=== PATIENT | female | born 1985 | race African-American/Black ===

== ENCOUNTER 2019-12-05 23:32 | Emergency (ER) | payer OTHER ==
[~2019-12-05] VITALS: Ht 180.3 cm; Wt 74.0 kg
[2019-12-06] MEDS ORDERED: SODIUM CHLORIDE 0.9% 1,000 ML IV ONE (01:40)
[2019-12-06] MEDS ORDERED: ONDANSETRON HCL 4MG/2ML INJ IV STA (01:40)
[2019-12-06 02:14] LABS: EOSINOPHILS % 0.3 % (0.0-5.0); HEMATOCRIT. 40.7 % (36.0-48.0); LYMPHOCYTES % 25.1 % (20.0-50.0); MEAN CORPUSCULAR HEMOGLOBIN 31.4 pg (28.0-32.0); MEAN CORPUSCULAR VOLUME 91.4 fL (81.0-99.0); MEAN PLATELET VOLUME 8.7 fl (7.4-10.4); MONOCYTES % 5.9 % (2.0-8.0); NEUTROPHILS % 67.7 % (40.0-76.0); PLATELET 267 x1000/uL (130-400); RED BLOOD CELL COUNT 4.45 mill/uL (4.2-5.4); RED CELL DISTRIBUTION WIDTH 13.2 % (11.6-14.6)
[2019-12-06 02:18] LABS: CHLORIDE 102 mEq/L (98-107)
[2019-12-06 03:44] LABS: CLARITY URINE CLEAR (CLEAR); COLOR URINE YELLOW (YELLOW); KETONES URINE 2+ (NEGATIVE); LEUKOCYTE ESTERASE URINE TRACE (NEGATIVE); NITRITE URINE NEGATIVE (NEGATIVE); OCCULT BLOOD URINE NEGATIVE (NEGATIVE); PROTEIN URINE NEGATIVE (NEGATIVE)
[2019-12-06 04:11] VITALS: BP 112/61
== END 2019-12-06 04:13 | disposition home or self-care (01) ==
LOC: ER 23:32
DX: O23.11 Infections of bladder in pregnancy, first trimester (principal); Z3A.09 9 weeks gestation of pregnancy
CPT/HCPCS: 36415; 80053; 81003; 81025; 85025; 96361; 96374; 99283; J2405; J7030

== ENCOUNTER 2020-10-29 17:51 | Emergency (ER) | payer OTHER ==
[~2020-10-29] VITALS: Ht 180.3 cm; Wt 70.0 kg
[2020-10-29] MEDS ORDERED: IBUPROFEN 400MG TABLET PO ONE (18:30)
[2020-10-29 19:30] VITALS: BP 120/84
== END 2020-10-29 19:33 | disposition home or self-care (01) ==
LOC: ER 17:51
DX: S63.91XA Sprain of unspecified part of right wrist and hand, initial encounter (principal); Y93.83 Activity, rough housing and horseplay; Y93.89 Activity, other specified; Y92.018 Other place in single-family (private) house as the place of occurrence of the external cause
CPT/HCPCS: 29125; 73130; 99283